=== PATIENT | female | born 1985 | race Asian ===

== ENCOUNTER 2019-12-20 10:34 | Emergency (ER) | payer OTHER ==
[2019-12-20 11:10] VITALS: BP 99/66
--- NOTE | 2019-12-20 11:54 | UC ---
FLU HPI - HPI Summary HPI Summary: 34-year-old female presenting with complaint of "fever of around 38.3" 2 days. This converts to about 100.9F. Denies URI symptoms. Denies cough. Denies shortness of breath and wheezing. Denies nausea and vomiting. Denies taking anything for fever relief. Patient states that her fever has worried her because she is "very concerned and nervous for the peacock virus." Denies recent travel outside of it,. Denies contact with any positive coronavirus persons. States that her neighbors did travel back from [place] in October but never had illness or respiratory symptoms. - History of Current Complaint Chief Complaint: UCGeneralIllness Stated Complaint: FEVER,RESPIRATORY Hx Obtained From: Patient Hx Last Menstrual Period: 11/24/19 Pain Intensity: 2 Pain Scale Used: 0-10 Numeric - Allergy/Home Medications Allergies/Adverse Reactions: Allergies Allergy/AdvReac Type Severity Reaction Status Date / Time No Known Allergies Allergy Verified 12/20/19 10:59 Home Medications: Home Medications NK [No Home Medications Reported] 12/20/19 [History Confirmed 12/20/19] PMH/Surg Hx/FS Hx/Imm Hx Previously Healthy: Yes - Surgical History Surgical History: Yes Surgery Procedure, Year, and Place: 2017 - Family History Known Family History: Positive: Non-Contributory - Social History Alcohol Use: None Substance Use Type: None Smoking Status (MU): Never Smoked Tobacco Review of Systems All Other Systems Reviewed And Are Negative: Yes Constitutional: Positive: Fever - 38.3. Negative: Chills, Fatigue ENT: Positive: Negative Respiratory: Positive: Negative Cardiovascular: Positive: Negative Gastrointestinal: Positive: Negative Musculoskeletal: Positive: Negative. Negative: Myalgia Neurological/Mental Status: Positive: Negative Physical Exam Triage Information Reviewed: Yes Appearance: Well-Appearing, No Pain Distress, Well-Nourished Vital Signs: Initial Vital Signs Temp 98.4 F 12/20/19 11:02 Pulse 74 12/20/19 11:02 Resp 16 12/20/19 11:02 BP 99/66 12/20/19 11:02 Pulse Ox 98 12/20/19 11:02 Lab Results 12/20/19 Range/Units 11:48 Influenza A (Rapid) Negative (Negative) Influenza B (Rapid) Negative (Negative) Vital Signs Reviewed: Yes Eyes: Positive: Conjunctiva Clear ENT: Positive: Hearing grossly normal, Pharynx normal, TMs normal, Uvula midline. Negative: Pharyngeal erythema, Nasal congestion, Nasal drainage, Tonsillar swelling, Tonsillar exudate Neck exam: Normal Neck: Positive: Supple, Nontender, No Lymphadenopathy Respiratory Exam: Normal Respiratory: Positive: Lungs clear, Normal breath sounds, No respiratory distress, No accessory muscle use. Negative: Crackles, Rhonchi, Stridor, Wheezing Cardiovascular Exam: Normal Cardiovascular: Positive: RRR, No Murmur Neurological: Positive: Alert Psychological: Positive: Age Appropriate Behavior Skin Exam: Normal Flu Course/Dx - Course Course Of Treatment: Negative rapid flu test. Discussed likely viral etiology of her fevers for the past 2 days. Discussed with patient that she does not currently have a fever. Informed her that if the fever returns she may take [id number] antipyretics. Patient without respiratory symptoms. Instructed to return or follow-up with PCP if she experiences any new or worsening symptoms. Patient voiced understanding and agreed with the treatment plan. - Differential Dx/Diagnosis Provider Diagnosis: History of fever Discharge ED - Sign-Out/Discharge Documenting (check all that apply): Patient Departure All imaging exams completed and their final reports reviewed: No Studies - Discharge Plan Condition: Stable Disposition: HOME Patient Education Materials: Fever in Adults (ED) Referrals: [facility] [Outside] - If Needed Additional Instructions: Your rapid flu test was negative today. You did not have a fever today. You may take ibuprofen and/or Tylenol if your fever returns. Return or follow up with your primary care provider if you experience fever higher than 102 that does not improve with medication, shortness of breath, or difficulty breathing. - Billing Disposition and Condition Condition: STABLE Disposition: Home
[2019-12-20 12:00] LABS: Influenza A Molecular Negative (Negative); Influenza B Molecular Negative (Negative)
== END 2019-12-20 12:30 | disposition home or self-care (01) ==
LOC: UCEAST 10:34
DX: R50.9 Fever, unspecified (principal)
CPT/HCPCS: 99201; G0463